=== PATIENT | male | born 1965 | race Caucasian/White ===

== ENCOUNTER 2016-09-21 16:55 | Emergency (ER) | payer BC ==
[2016-09-21] MEDS ORDERED: Sodium Chloride 0.9% 10 ML Syringe FLUSH PRN (17:24)
[2016-09-21] MEDS ORDERED: Sodium Chloride 0.9% 1,000 ML IV ONE (18:26)
[2016-09-21 19:38] VITALS: BP 121/96
--- NOTE | 2016-09-21 19:44 | EDM.PDOC ---
ED HPI GENERAL MEDICAL PROBLEM - General Chief Complaint: Cardiovascular Problem Stated Complaint: IRREGULAR HEARTBEAT Time Seen by Provider: 09/21/16 19:00 Source of Information: Reports: Patient, Family History Limitations: Reports: No Limitations - History of Present Illness INITIAL COMMENTS - FREE TEXT/NARRATIVE: 51 y.o.w.m with H/O non specified Sz, on Dilantin, Last Sz was 17 years ago, came to the ed because of heart palpitations. As per SO, his heart rate was 150s (?). Metoprolol 50 mg was given [employer]. His HR on arrivall was 116/86, BP was 139/105 pulse was 93. No C/P or any other acute medical issues. Onset: Unknown/Unsure Onset Date: 09/21/16 Onset Time: 15:00 Duration: Hour(s):, Intermittent Location: Reports: Other (palpitations) Quality: Reports: Same as Previous Episode, Other (palpitaions) Severity: Mild Improves with: Reports: None Worsens with: Reports: None Associated Symptoms: Reports: No Other Symptoms - Related Data Allergies Allergy/AdvReac Type Severity Reaction Status Date / Time neomycin [Neomycin] Allergy Rash Verified 09/21/16 17:15 Home Meds: Home Meds Phenytoin Sodium Extended [Dilantin] 300 mg PO DAILY 08/09/13 [History] Metoprolol Tartrate 50 mg PO BID #60 tablet 05/20/15 [Rx] Simvastatin [Simvastatin] 20 mg PO DAILY 09/21/16 [History] Past Medical History - Past Health History Medical/Surgical History: Denies Medical/Surgical History Cardiovascular History: Reports: High Cholesterol, Other (See Below) Other Cardiovascular History: patient states his heart rate had flucuated in the past, previous hospitals have worked him up and revealed negative results as to why this is happening. Neurological History: Reports: Seizure Social & Family History - Family History Family Medical History: Noncontributory - Tobacco Use Smoking Status *Q: Never Smoker - Recreational Drug Use Recreational Drug Use: No ED ROS GENERAL - Review of Systems Review Of Systems: See Below Constitutional: Reports: No Symptoms HEENT: Reports: No Symptoms Respiratory: Reports: No Symptoms Cardiovascular: Reports: Palpitations Endocrine: Reports: No Symptoms GI/Abdominal: Reports: No Symptoms : Reports: No Symptoms Musculoskeletal: Reports: No Symptoms Skin: Reports: No Symptoms Neurological: Reports: No Symptoms Psychiatric: Reports: No Symptoms Hematologic/Lymphatic: Reports: No Symptoms Immunologic: Reports: No Symptoms ED EXAM, GENERAL - Physical Exam Exam: See Below Exam Limited By: No Limitations General Appearance: Alert, WD/WN, No Apparent Distress Eye Exam: Bilateral Eye: Normal Inspection Ears: Normal External Exam Ear Exam: Bilateral Ear: Auricle Normal Nose: Normal Inspection, Normal Mucosa Throat/Mouth: Normal Lips, Other (decr. moisture of mucosal membrane) Head: Atraumatic, Normocephalic Neck: Normal Inspection, Supple, Non-Tender Respiratory/Chest: No Respiratory Distress, Lungs Clear, Normal Breath Sounds Cardiovascular: Normal Peripheral Pulses, Irregularly Irregular GI/Abdominal: Normal Bowel Sounds, Soft, Non-Tender, No Organomegaly (Male) Exam: Deferred Rectal (Males) Exam: Deferred Back Exam: Normal Inspection, Full Range of Motion Extremities: Normal Inspection, Normal Range of Motion, Non-Tender, No Pedal Edema Neurological: Alert, Oriented, CN II-XII Intact, Normal Cognition, Normal Gait Psychiatric: Normal Affect, Normal Mood Skin Exam: Warm, Dry, Intact, Normal Color, No Rash Lymphatic: No Adenopathy EKG INTERPRETATION EKG Date: 09/21/16 Time: 17:15 Rhythm: A-Fib Rate (Beats/Min): 93 Hume: Normal P-Wave: Absent QRS: Normal ST-T: Normal QT: Normal Comparison: NA - No Prior EKG Course - Vital Signs Text/Narrative:: 51 y.o.w.m with H/O non specified Sz, on Dilantin, Last Sz was 17 years ago, came to the ed because of heart palpitations. As per SO, his heart rate was 150s (?). Metoprolol 50 mg was given [employer]. His HR on arrivall was 116/86, BP was 139/105 pulse was 93. No C/P or any other acute medical issues. Pt does takes only a 1/3 of his Dilantin. His past Dilantin lab tests were sub therapeutic. PE: WNWD WM in NAD Labs: CBC, BMP, TSH all NL. Phenytoin level was 1.5 Consultation: Dr. Noguera, Forensic Document Examiner [facility]: No Coumadin indicated but a full ASA daily at this time. Impression: Palpitations, A Fib with NVR. Subtherapeutic Phenytoin level. Dehydration Tx: NS. Ice chips, Reexam: Improved, BP was 130/89 on D/C Plan: D/C with instructions. Last Recorded V/S: Last Vital Signs Temp 36.6 C 09/21/16 17:00 Pulse 98 09/21/16 19:30 Resp 20 09/21/16 19:30 BP 121/96 H 09/21/16 19:30 Pulse Ox 99 09/21/16 19:30 - Orders/Labs/Meds Orders: Active Orders 24 hr Category Date Time Status EKG Documentation Completion [RC] ASDIRECTED Care 09/21/16 17:05 Active Peripheral IV Insertion Adult [OM.PC] Routine Oth 09/21/16 17:24 Ordered EKG 12 Lead [EK] Routine Ther 09/21/16 17:05 Ordered Labs: Laboratory Tests 09/21/16 09/21/16 09/21/16 Range/Units 17:13 17:13 17:13 WBC 10.8 (4.5-12.0) X10-3/uL RBC 5.39 (4.30-5.75) x10(6)uL Hgb 15.1 (11.5-15.5) g/dL Hct 45.7 (30.0-51.3) % MCV 84.7 (80-96) fL MCH 28.1 (27.7-33.6) pg MCHC 33.1 (32.2-35.4) g/dL RDW 11.8 (11.5-15.5) % Plt Count 197 (125-369) X10(3)uL MPV 8.6 (7.4-10.4) fL Neut % (Auto) 65.2 (46-82) % Lymph % (Auto) 21.6 (13-37) % Dixon % (Auto) 9.1 (4-12) % Eos % (Auto) 2 (1.0-5.0) % Baso % (Auto) 2 (0-2) % Neut # (Auto) 7.1 (1.6-8.3) # Lymph # (Auto) 2.3 (0.6-5.0) # Dixon # (Auto) 1.0 (0.0-1.3) # Eos # (Auto) 0.2 (0.0-0.8) # Baso # (Auto) 0.2 (0.0-0.2) # Sodium 139 (135-145) mmol/L Potassium 3.9 (3.5-5.3) mmol/L Chloride 106 (100-110) mmol/L Carbon Dioxide 26 (23-29) mmol/L BUN 17 (5-20) mg/dL Creatinine 0.9 (0.6-1.3) mg/dL Est Cr Clr Drug Dosing TNP Estimated GFR (MDRD) > 60 (>60) BUN/Creatinine Ratio 18.9 (9-20) Glucose 112 (80-116) mg/dL Calcium 9.1 (8.6-10.2) mg/dL TSH, Ultra Sensitive 0.40 (0.4-5.5) nlU/mL Phenytoin (10-20) ug/mL 09/21/16 Range/Units 17:13 WBC (4.5-12.0) X10-3/uL RBC (4.30-5.75) x10(6)uL Hgb (11.5-15.5) g/dL Hct (30.0-51.3) % MCV (80-96) fL MCH (27.7-33.6) pg MCHC (32.2-35.4) g/dL RDW (11.5-15.5) % Plt Count (125-369) X10(3)uL MPV (7.4-10.4) fL Neut % (Auto) (46-82) % Lymph % (Auto) (13-37) % Dixon % (Auto) (4-12) % Eos % (Auto) (1.0-5.0) % Baso % (Auto) (0-2) % Neut # (Auto) (1.6-8.3) # Lymph # (Auto) (0.6-5.0) # Dixon # (Auto) (0.0-1.3) # Eos # (Auto) (0.0-0.8) # Baso # (Auto) (0.0-0.2) # Sodium (135-145) mmol/L Potassium (3.5-5.3) mmol/L Chloride (100-110) mmol/L Carbon Dioxide (23-29) mmol/L BUN (5-20) mg/dL Creatinine (0.6-1.3) mg/dL Est Cr Clr Drug Dosing Estimated GFR (MDRD) (>60) BUN/Creatinine Ratio (9-20) Glucose (80-116) mg/dL Calcium (8.6-10.2) mg/dL TSH, Ultra Sensitive (0.4-5.5) nlU/mL Phenytoin 1.5 L (10-20) ug/mL Meds: Medications Discontinued Medications Generic Name Dose Route Start Last Admin Trade Name Freq PRN Reason Stop Dose Admin Sodium Chloride 1,000 mls @ 999 mls/hr 09/21/16 18:26 09/21/16 18:20 Normal Saline IV 09/21/16 19:26 999 mls/hr .BOLUS ONE Administration Sodium Chloride 10 ml 09/21/16 17:24 Saline Flush FLUSH ASDIRECTED PRN Keep Vein Open Departure - Departure Time of Disposition: 19:38 Disposition: Home, Self-Care 01 Condition: Good Clinical Impression: Atrial fibrillation with normal ventricular rate, H/O idiopathic seizure, Dehydration Referrals: Josi Toledo, [facility]ER [Primary Care Provider] - Forms: ED Department Discharge Additional Instructions: Please take Aspirin 325 mg daily. Please increase water intake. Please cont to take Metoprolol and Dilantin as recommended. Please f/u with your Neurologist about your Dilantin meds. if cont or stop it. Your Dilantin level is 1.5 today ( 10-20). Please f/u with your PMD as well regarding your A- fibrillation. Please come back to the ed if yours symptoms get worse acutely. - My Orders Last 24 Hours: My Active Orders 09/21/16 17:05 EKG Documentation Completion [RC] ASDIRECTED EKG 12 Lead [EK] Routine 09/21/16 17:24 Peripheral IV Insertion Adult [OM.PC] Routine - Assessment/Plan Last 24 Hours: My Active Orders 09/21/16 17:05 EKG Documentation Completion [RC] ASDIRECTED EKG 12 Lead [EK] Routine 09/21/16 17:24 Peripheral IV Insertion Adult [OM.PC] Routine
== END 2016-09-21 19:40 | disposition home or self-care (01) ==
LOC: FB.ED 16:55
DX: I48.91 Unspecified atrial fibrillation (principal); E86.0 Dehydration; E78.00 Pure hypercholesterolemia, unspecified; Z86.69 Personal history of other diseases of the nervous system and sense organs; Z88.1 Allergy status to other antibiotic agents; Z79.899 Other long term (current) drug therapy
CPT/HCPCS: 36415; 80048; 80185; 84443; 85025; 93005; 96360; 99284; J7040

== ENCOUNTER 2021-09-02 01:46 | Emergency (ER) | payer BC ==
[2021-09-02] MEDS ORDERED: Lidocaine 2% Viscous Solution 15 ML UD PO ONE (02:12)
[2021-09-02] MEDS ORDERED: Acetaminophen/HYDROcodone 325-5 MG Tab PO STA (02:13)
[2021-09-02] MEDS ORDERED: Azithromycin 500 MG Tab PO STA (02:15)
[2021-09-03 02:55] VITALS: BP 149/92; PULSE 84
== END 2021-09-02 02:40 | disposition home or self-care (01) ==
LOC: FB.ED 01:46
DX: J20.9 Acute bronchitis, unspecified (principal); Z88.1 Allergy status to other antibiotic agents; Z79.899 Other long term (current) drug therapy; Z79.82 Long term (current) use of aspirin
CPT/HCPCS: 99283; A9270